=== PATIENT | female | born 1975 | race Caucasian/White ===

== ENCOUNTER 2025-02-09 02:16 | Emergency (ER) | payer OTHER, SELFPAY ==
[2025-02-09 02:18] VITALS: BP 132/78
--- NOTE | 2025-02-09 02:37 | ED.GENMED ---
History of Present Illness
General
Chief Complaint: Allergic Reaction
Source: patient
Exam Limitations: none
Time Seen by Provider: 02/09/25 02:35
Nursing documentation reviewed up to this point in time: agreed with
History of Present Illness
History of Present Illness:
49-year-old female presents to the ER today with concerns of swelling and pruritus around the left eye since last evening. She reports that she was cutting the hedges outside when she felt something fly into her left eye around the corner of her
eye. Patient reports that she had some itching at the time. She is unsure if she was bitten by a bug on her left upper eyelid or if something came to contact with her eye. [place] She reports that later that
evening, she went out to dinner and had a salad with no new foods. She reports that later that the itching got worse. She subsequently went to bed and woke up and noticed that the swelling had slightly increased and she has some redness
periorbitally. She denies any foreign body sensation in the eye. She denies any eye pain. She denies any facial pain, facial swelling. She denies any known allergies. She denies any lip or tongue swelling any shortness of breath or chest pain.
She denies any trouble swallowing. She reports that she does not use any new facial cleansers or moisturizers recently. She denies any fevers or chills. Of note, she had a breast mass biopsy a few weeks ago and recently started to develop some
redness and swelling around the incision site. She was started on Keflex and is on day 7 of Keflex. She has another week left. She reports that the cellulitis has been improving. She reports that the rash has not spread to other areas of the
body. She wears glasses at baseline and visual acquity was tested without glasses, she sees ophthalmology for a full exam once a year.
Review of Systems
Review of Systems
All Other Systems: ROS reviewed and negative except as documented in HPI and ROS
Phy Exam
Physical Exam
Physical Exam:
General: Patient is well appearing and in no acute distress; non-toxic
Skin: Warm and dry
Head: Normocephalic, atraumatic. No facial swelling, no tenderness to palpation.
Eyes: Sclera non-icteric and non-erythematous b/l. EOMs intact.
Small patch of urticaria and swelling noted to medial to left canthus extending under the left eye; no corneal abrasion or ulcer in the left eye, no foreign body.
Mouth: No intraoral lesions, no uvular edema, no pharyngeal erythema
Cardiac: Regular rate
Pulm: Normal respiratory effort, no wheezes, rales, or rhonchi
Neuro: CN II-XII intact, no focal neurologic deficits.
Psychiatric: Appropriate mood and affect.
Course
Orders/Labs/Results
Orders:
Orders
02/09/25 02:46
Diphenhydramine [Benadryl] 25 mg PO NOW STA
Famotidine [Pepcid] 20 mg PO NOW STA
Prednisone [Deltasone] 50 mg PO NOW STA
02/09/25 03:28
Purified Water Eye Wash [Dacriose Eye Wash Solution] 120 ml .ROUTE .STK-MED ONE
Tetracaine HCl [Tetracaine 0.5% Ophthalmic Solution] 1 drop .ROUTE .STK-MED ONE
02/09/25 03:29
Fluorescein Sodium [Ful-Jeanette] 1 mg .ROUTE .STK-MED ONE
Vital Signs
Initial and Last Documented VS:
Initial Vital Signs
Temp Pulse Resp BP Pulse Ox
98 F 78 20 132/78 98
02/09/25 02:18 02/09/25 02:18 02/09/25 02:18 02/09/25 02:18 02/09/25 02:18
Last Documented Vital Signs
Temp Pulse Resp BP Pulse Ox
98 F 78 20 132/78 98
02/09/25 02:18 02/09/25 02:18 02/09/25 02:18 02/09/25 02:18 02/09/25 02:37
MDM/Problems Addressed
Differential Diagnosis Includes:
ddx include contact dermatitis, allergic reaction, blepharitis, eczema, psoriasis
MDM/Problems Addressed:
49-year-old female presents to the ER today with concerns of swelling and pruritus around the left eye since last evening. She reports that she was cutting the hedges outside when she felt something fly into her left eye around the corner of her
eye. Patient reports that she had some itching at the time and itching and swelling and redness seemed to get worse throughout the day. Of note, she has been taking antibiotics keflex but is on day 7. She denies any rash in any other area. No
associated sob, chest pain, swelling of the tongue or lips. Symptomatic improvement achieved with benadryl and famotidine. She was also given dose of steroid and will be started on a short burst. Case reviewed with ED attending. I did stain her eye
which showed no evidence of corneal ulcer or abrasion. Suspect contact dermatitis secondary to the contact with the bug and/or the hedge trimmings that came into contact with her eye when these symptoms started. Do not suspect drug allergy. Patient
stable for discharge, discussed strict return precautions.
*Pulse Oximetry
SaO2: 98
Patient hypoxic: no
*Critical Care Note
Total Time (30-74mins, 75-104mins- exclusive of procedures): Not Applicable
ED Attending Note
-
Portions of this chart may have been created with voice recognition software.� Occasional wrong word or��sound alike� substitutions may have occurred due to the inherent limitations of voice recognition software.
Discharge Plan
Departure
Patient Disposition: Home (Routine Discharge)
Date of Disposition: 02/09/25
Time of Disposition: 03:26
Patient with high blood pressure during this ER visit?: Yes
Condition: Good
Discharge Problem:
Contact dermatitis
Instructions: Contact dermatitis, BLOOD PRESSURE
Prescriptions:
New
prednisone 20 mg tablet
40 mg PO DAILY 4 Days Qty: 8 0RF
Activity Restrictions/Additional Instructions:
I recommend continuing the antibiotic as directed by the breast surgeon.
Starting on Sunday, please start taking 40 mg of prednisone for 4 additional days.
Please follow up with your primary care provider.
PLEASE RETURN TO THE ER SHOULD YOU DEVELOP TONGUE OR LIP SWELLING, CHEST PAIN, SHORTNESS OF BREATH, BLURRY VISION, VISUAL LOSS, RAPID SPREAD OF THE RASH, PAIN, FEVERS OR CHILLS, OR ANY OTHER SIGNS OR SYMPTOMS WORRISOME TO YOU.
Interventions
Interventions:
*Risk Screen - Suicide Last Done: 02/09/25 02:18
*General Assessment Last Done: 02/09/25 02:54
*Neglect/Abuse Screening Last Done: 02/09/25 02:18
*ED- Fall Risk Assessment Last Done: 02/09/25 02:54
*ED COVID-19 Vaccine History Last Done: 02/09/25 02:54
*ED Influenza Vaccine History Last Done: 02/09/25 02:54
*Nursing Disposition Last Done: 02/09/25 03:40
ED- Cardiac Assessment Last Done: 02/09/25 02:54
ED- Pulmonary Assessment Last Done: 02/09/25 02:54
ED-Skin Assessment Last Done: 02/09/25 02:54
Discharge Date and Time
Discharge Date/Time: 02/09/25 03:41
Print Language: BULGARIAN
[2025-02-09] MEDS: DELTASONE 50 MG PO (02:51)
[2025-02-09] MEDS: BENADRYL 25 MG PO (02:51)
[2025-02-09] MEDS: PEPCID 20 MG PO (02:51)
== END 2025-02-09 03:41 | disposition home or self-care (01) ==
LOC: EMR 02:16
PROVIDERS: EMERGENCY PHYSICIAN Emergency Medicine
DX: L25.9 Unspecified contact dermatitis, unspecified cause (principal)
CPT/HCPCS: 99283